=== PATIENT | female | born 1980 | race African-American/Black ===

== ENCOUNTER 2023-12-02 13:51 | Emergency (ER) | payer OTHER ==
[~2023-12-02] VITALS: Ht 170.2 cm; Wt 82.3 kg
[2023-12-02 14:25] VITALS: TEMP 98.1
[2023-12-02] MEDS ORDERED: VITAMIN E400 UNI1 PO (15:10)
[2023-12-02] MEDS ORDERED: ELIQUIS5 MG PO (15:10)
[2023-12-02] MEDS ORDERED: LINZESS145 MCG (15:10)
[2023-12-02] MEDS ORDERED: GABAPENTIN400 MG PO (15:10)
[2023-12-02] MEDS ORDERED: BIKTARVY 30-121 EACH (15:10)
[2023-12-02] MEDS ORDERED: METOPROLOL SUCC25 MG PO (15:10)
[2023-12-02] MEDS ORDERED: DOCUSATE SODIU100 MG PO (15:10)
[2023-12-02] MEDS ORDERED: AMLODIPINE BESYL5 MG PO (15:10)
[2023-12-02] MEDS: SODIUM CHLORIDE 0.9% 1000ML 1,000 ML IV SCH (15:28)
[2023-12-02] MEDS ORDERED: IOPAMIDOL 370 MG/ML 100 ML INFUS..BTL INJ ONE (15:39)
[2023-12-02 16:00] VITALS: PULSE 59; RESP 17; O2SAT 100
[2023-12-02] MEDS ORDERED: MIRALAX17 GM PO (16:41)
[2023-12-02] MEDS ORDERED: ONDANSETRON ODT4 MG PO (16:43)
[2023-12-02] MEDS ORDERED: DICYCLOMINE HCL 10 MG CAP ONE (16:45)
[2023-12-02] MEDS: DICYCLOMINE HCL 10 MG CAP PO ONE (16:50)
== END 2023-12-02 16:51 | disposition home or self-care (01) ==
LOC: FSED 14:22
DX: R11.0 Nausea (principal); K62.89 Other specified diseases of anus and rectum; K59.00 Constipation, unspecified; R10.30 Lower abdominal pain, unspecified; I10 Essential (primary) hypertension; B20 Human immunodeficiency virus [HIV] disease
CPT/HCPCS: 74177; 80048; 80053; 80307; 81003; 81025; 82553; 84484; 85025; 93005; 99284; J7030; Q9967

== ENCOUNTER → 2023-12-19 | Day surgery (SDC) | payer OTHER ==
[2023-12-14 12:24] LABS: BASOPHILS # (AUTO) 0.1 (0.0-0.1); BASOPHILS % 1.6 % (0.0-1.0); EOSINOPHILS # (AUTO) 0.1 (0.0-0.4); EOSINOPHILS % 2.9 % (0.0-6.0); HEMATOCRIT 35.1 % (34.2-44.1); LYMPHOCYTES # (AUTO) 1.5 (1.0-3.2); LYMPHOCYTES % 34.7 % (18.0-39.1); MEAN CORPUSCULAR HEMOGLOBIN 30.1 pg (28-32); MEAN CORPUSCULAR HGB CONC 31.3 g/dL (31-35); MEAN CORPUSCULAR VOLUME 96.2 fL (81-99); MONOCYTES # (AUTO) 0.3 (0.2-0.8); MONOCYTES % 7.7 % (4.4-11.3); NEUTROPHILS # (AUTO) 2.3 (2.1-6.9); NEUTROPHILS % 52.6 % (38.7-80.0); PLATELET COUNT 346 x10e3/uL (140-360); RED BLOOD COUNT 3.65 x10e6/uL (3.6-5.1); RED CELL DISTRIBUTION WIDTH 13.2 % (11.7-14.4); WHITE BLOOD COUNT 4.44 x10e3/uL (4.8-10.8)
[~2023-12-19] MED LIST: AMLODIPINE BESYL5 MG PO; BIKTARVY 30-121 EACH; DOCUSATE SODIU100 MG PO; ELIQUIS5 MG PO; FENTANYL CITRATE/PF 100MCG/2 ML INJ ONE; GABAPENTIN400 MG PO; HYOSCYAMINE SULFATE 0.5 MG/ML INJ ONE; LACTATED RINGER'S 1,000 ML ONE; LIDOCAINE HCL 2% LOCAL INJ 5 ML SDV VIAL INJ ONE; LINZESS145 MCG PO; METOCLOPRAMIDE HCL 10 MG/2ML VIAL ONE; METOPROLOL SUCC25 MG PO; MIRALAX17 GM PO; ONDANSETRON ODT4 MG PO; PANTOPRAZOLE SO40 MG PO; PHENYLEPHRINE HCL 1% 10 MG/ML VIAL ONE; PROPOFOL IV EMULSION 10 MG/ML 20 ML VIAL ONE; PROPOFOL IV EMULSION 10 MG/ML 50 ML VIAL IV ONE; VITAMIN E400 UNI1 PO
[2023-12-19 13:14] VITALS: TEMP 97.6
[2023-12-19 13:45] VITALS: BP 111/79; PULSE 98; RESP 13; O2SAT 99
== END | disposition home or self-care (01) ==
LOC: OR 10:17
PROVIDERS: ATTEND Internal Medicine Gastroenterology
DX: K22.2 Esophageal obstruction (principal); D12.3 Benign neoplasm of transverse colon; K29.70 Gastritis, unspecified, without bleeding; K31.89 Other diseases of stomach and duodenum; K22.89 Other specified disease of esophagus; K21.9 Gastro-esophageal reflux disease without esophagitis; K59.09 Other constipation; K62.89 Other specified diseases of anus and rectum; Z71.3 Dietary counseling and surveillance; Z21 Asymptomatic human immunodeficiency virus [HIV] infection status; I10 Essential (primary) hypertension; G62.9 Polyneuropathy, unspecified; Z88.6 Allergy status to analgesic agent; Z88.8 Allergy status to other drugs, medicaments and biological substances; Z01.810 Encounter for preprocedural cardiovascular examination; Z01.812 Encounter for preprocedural laboratory examination; Z79.899 Other long term (current) drug therapy; Z68.29 Body mass index [BMI] 29.0-29.9, adult; Z86.718 Personal history of other venous thrombosis and embolism
CPT/HCPCS: 36415; 43239; 43450; 45385; 81025; 85025; 93005; J1980; J2001; J2371; J2470; J2704 ×2; J2765; J3010; J7121; 43235

== ENCOUNTER → 2023-12-25 | Day surgery (SDC) | payer OTHER ==
[~2023-12-25] MED LIST changes: +GLUCAGON FOR INJ 1 MG VIAL ONE; -LIDOCAINE HCL 2% LOCAL INJ 5 ML SDV VIAL INJ ONE; -METOCLOPRAMIDE HCL 10 MG/2ML VIAL ONE; -PHENYLEPHRINE HCL 1% 10 MG/ML VIAL ONE; -PROPOFOL IV EMULSION 10 MG/ML 20 ML VIAL ONE; -PROPOFOL IV EMULSION 10 MG/ML 50 ML VIAL IV ONE; +PROPOFOL IV EMULSION 50 ML IV ONE
[2023-12-25 16:19] VITALS: TEMP 97.2
[2023-12-25 16:50] VITALS: BP 117/72; PULSE 72; RESP 16; O2SAT 98
== END | disposition home or self-care (01) ==
LOC: OR 14:32
PROVIDERS: ATTEND Internal Medicine Gastroenterology
DX: K62.89 Other specified diseases of anus and rectum (principal); D12.2 Benign neoplasm of ascending colon; K59.09 Other constipation; K64.8 Other hemorrhoids; R13.19 Other dysphagia; K21.9 Gastro-esophageal reflux disease without esophagitis; Z71.3 Dietary counseling and surveillance; Z21 Asymptomatic human immunodeficiency virus [HIV] infection status; G62.9 Polyneuropathy, unspecified; I10 Essential (primary) hypertension; E78.5 Hyperlipidemia, unspecified; R00.2 Palpitations; F41.9 Anxiety disorder, unspecified; F32.A Depression, unspecified; F17.200 Nicotine dependence, unspecified, uncomplicated; Z88.6 Allergy status to analgesic agent; Z88.8 Allergy status to other drugs, medicaments and biological substances; Z79.02 Long term (current) use of antithrombotics/antiplatelets; Z79.899 Other long term (current) drug therapy; Z68.29 Body mass index [BMI] 29.0-29.9, adult; Z86.718 Personal history of other venous thrombosis and embolism; Z86.11 Personal history of tuberculosis
CPT/HCPCS: 45385; 81025; J1610; J1980; J2704; J3010; J7121

== ENCOUNTER → 2024-09-04 | Outpatient (REF) | payer OTHER ==
[~2024-09-04] MED LIST changes: -FENTANYL CITRATE/PF 100MCG/2 ML INJ ONE; -GLUCAGON FOR INJ 1 MG VIAL ONE; -HYOSCYAMINE SULFATE 0.5 MG/ML INJ ONE; -LACTATED RINGER'S 1,000 ML ONE; -PROPOFOL IV EMULSION 50 ML IV ONE
== END ==
LOC: RAD 14:37
PROVIDERS: ATTEND Nurse Practitioner
DX: K59.04 Chronic idiopathic constipation (principal)
CPT/HCPCS: 74018